=== PATIENT | female | born 1990 | race Caucasian/White ===

== ENCOUNTER 2019-04-07 15:37 | Emergency (ER) | payer MEDICAID ==
[2019-04-07] MEDS ORDERED: Ondansetron 4 MG Tab.DIS PO ONE (18:04)
--- NOTE | 2019-04-07 18:13 | EDM.PDOC ---
ED HPI GENERAL MEDICAL PROBLEM - General Chief Complaint: ENT Problem Stated Complaint: DENTAL COMPLAINT Time Seen by Provider: 04/07/19 17:48 Source of Information: Reports: Patient History Limitations: Reports: No Limitations - History of Present Illness INITIAL COMMENTS - FREE TEXT/NARRATIVE: Ms. Gale is a pleasant 28-year-old woman with no significant past medical history, who states that she had 5 teeth extracted, due to an infection, this past 04/05/2019 at [facility] in [place]. She states that she was prescribed [place], but no antibiotics. She states that she has been taking half a tablet of [place], along with 800 mg of ibuprofen every 6 hours. She now presents due to nausea and vomiting since , 04/06/2019. The patient states that she saw her PCP earlier today, and was prescribed metronidazole for bacterial vaginosis. She states that she did not discuss her nausea and vomiting with her PCP. The patient denies recent fever, but states that she had watery diarrhea this morning, then none since. The patient's PCP is Lizzeth Coates NP. 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 - Past Surgical History Female Surgical History: Reports: Ureteral Stent (right, due to extrinsic constriction), Other (See Below) (Cervical surgery) Social & Family History - Family History Family Medical History: Noncontributory - Tobacco Use Smoking Status *Q: Current Some Day Smoker Years of Tobacco use: 14 Packs/Tins Daily: 0.2 - Caffeine Use Caffeine Use: Reports: Coffee - Alcohol Use Alcohol Use History: No - Recreational Drug Use Recreational Drug Use: No - Living Situation & Occupation Living situation: Reports: , with Family Occupation: Unemployed ED ROS ENT - Review of Systems Review Of Systems: ROS reveals no pertinent complaints other than HPI. ED EXAM, ENT - Physical Exam Exam: See Below Exam Limited By: No Limitations General Appearance: Alert, WD/WN, No Apparent Distress Eye Exam: Bilateral Eye: EOMI, Normal Inspection Ears: Normal External Exam, Normal Canal, Hearing Grossly Normal, Normal TMs Nose: Normal Inspection, Normal Mucousa, No Blood Mouth/Throat: Normal Lips, Normal Oropharynx, Other (Teeth # 6, 11, 18 and 19 recently excised. The gingival pockets appear to be clean, with no sign of gingival infection, such as swelling, drainage, or pointing.) Head: Atraumatic, Normocephalic Neck: Normal Inspection, Supple, Non-Tender, Full Range of Motion. No: Lymphadenopathy (L), Lymphadenopathy (R) Course - Vital Signs Last Recorded V/S: Last Vital Signs Temp 37.1 C 04/07/19 16:07 Pulse 92 04/07/19 16:07 Resp 18 04/07/19 16:07 BP 130/77 04/07/19 16:07 Pulse Ox 100 04/07/19 16:07 - Orders/Labs/Meds Meds: Medications Discontinued Medications Generic Name Dose Route Start Last Admin Trade Name Doug PRN Reason Stop Dose Admin Ondansetron HCl 4 mg 04/07/19 18:04 Zofran Odt PO 04/07/19 18:05 ONETIME ONE - Re-Assessments/Exams Free Text/Narrative Re-Assessment/Exam: 04/07/19 18:07 On examination, I do not see any signs of an active gingival infection, therefore I don't see the need for any additional antibiotics at this time. With respect to the patient's nausea and vomiting, that may be due to the [place] , as well as to the Flagyl that she is taking. The patient will be given a tablet of Zofran ODT here, and I will prescribe the same. She may then start taking her previously prescribed [place] at an appropriate dose. I would like her to continue ibuprofen, but at a somewhat lower dose. Departure - Departure Time of Disposition: 18:09 Disposition: Home, Self-Care 01 Condition: Good Clinical Impression: Nausea & vomiting, Pain of gingiva - Discharge Information *PRESCRIPTION DRUG MONITORING PROGRAM REVIEWED*: Yes *COPY OF PRESCRIPTION DRUG MONITORING REPORT IN PATIENT SANTHOSH: No Prescriptions: Ondansetron [Zofran ODT] 1 tab PO Q8H PRN #10 tab.dis PRN Reason: Nausea/Vomiting Referrals: Lizzeth Coates MD [Ordering Only Provider] - Forms: ED Department Discharge Additional Instructions: You were seen in the emergency room for nausea and vomiting following dental extractions on Wednesday, and after starting Flagyl today. You have been started on the antinausea medicine Zofran. A prescription for Zofran has been sent to the [facility], located in the [place] store. Dissolve one tablet of Zofran on your tongue up to every 8 hours, as needed for nausea and vomiting. Continue to take avpm-utc-tyexdso ibuprofen, 3-4 tablets (600-800 mg) every 8 hours, with food, around the clock. Continue to take your previously prescribed [place], 1 to 2 tablets, up to every 6 hours, as needed for pain not relieved by ibuprofen. Continue to take your previously prescribed Flagyl every 8 hours. Follow-up with your dentist as needed. If any other problems, please do not hesitate to return to the ER.
== END 2019-04-07 18:00 | disposition home or self-care (01) ==
LOC: JD.ED 15:37
DX: R11.2 Nausea with vomiting, unspecified (principal); K06.9 Disorder of gingiva and edentulous alveolar ridge, unspecified; Z98.818 Other dental procedure status
CPT/HCPCS: 99282

== ENCOUNTER 2019-06-07 15:08 | Emergency (ER) | payer OTHER, MEDICAID ==
--- NOTE | 2019-06-07 16:03 | CT ---
Head CT Technique: Multiple axial sections through the brain were obtained. Intravenous contrast was not utilized. Comparison: No prior intracranial imaging is available. Findings: Ventricles along with basal cisterns and sulci over the convexities are within normal limits for the patient's age. No abnormal parenchymal densities are seen. No evidence of intracranial hemorrhage. No midline shift or mass effect is seen. Bone window settings were reviewed which show the visualized paranasal sinuses to appear clear. Very minimal mucosal thickening is seen within the inferior mastoid sinus which is likely incidental. Other visualized mastoid sinuses are clear. No acute calvarial abnormality is seen. Impression: 1. Minimal mucosal thickening within the inferior left mastoid sinus which is most likely incidental. 2. No acute intracranial abnormality is appreciated. Diagnostic code #2 This report was dictated in [place] Standard Time
--- NOTE | 2019-06-07 17:42 | CT ---
CT cervical spine Technique: Multiple axial sections were obtained from above C1 inferiorly to the bottom of T2. Reconstructed sagittal and coronal images were reviewed. Comparison: No prior cervical spine imaging. Findings: Vertebral bodies and posterior arches are intact. No bony central or bony neural foraminal stenosis is seen. Scoliosis is noted. No fracture or subluxation is seen. Impression: 1. Scoliosis. Uncertain if this is real or due to position. 2. No acute fracture or abnormal subluxation is seen. Diagnostic code #2 This report was dictated in [place] Standard Time
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
== END 2019-06-07 18:00 | disposition home or self-care (01) ==
LOC: JD.ED 15:08
DX: S16.1XXA Strain of muscle, fascia and tendon at neck level, initial encounter (principal); G44.209 Tension-type headache, unspecified, not intractable; Z88.8 Allergy status to other drugs, medicaments and biological substances; Z88.5 Allergy status to narcotic agent; Z87.891 Personal history of nicotine dependence; V43.92XA Unspecified car occupant injured in collision with other type car in traffic accident, initial encounter; Y92.410 Unspecified street and highway as the place of occurrence of the external cause
CPT/HCPCS: 70450; 70450-26; 72125; 72125-26; 99282; 99284-25

== ENCOUNTER 2019-07-02 13:18 | Emergency (ER) | payer MEDICAID ==
[2019-07-02] MEDS ORDERED: Ondansetron 4 MG/2 ML SDV IVPUSH ONE (13:41)
[2019-07-02] MEDS ORDERED: HYDROmorphone 1 MG/ML Syringe IVPUSH STA (13:41)
[2019-07-02] MEDS ORDERED: Sodium Chloride 0.9% 1,000 ML IV ONE (13:42)
[2019-07-02] MEDS ORDERED: Sodium Chloride 0.9% 10 ML Syringe FLUSH PRN (13:43)
--- NOTE | 2019-07-02 13:50 | EDM.PDOC ---
ED HPI GENERAL MEDICAL PROBLEM - General Chief Complaint: Abdominal Pain Stated Complaint: ABD PAIN AND NAUSEA Time Seen by Provider: 07/02/19 13:31 Source of Information: Reports: Patient, RN Notes Reviewed History Limitations: Reports: No Limitations - History of Present Illness INITIAL COMMENTS - FREE TEXT/NARRATIVE: Patient is a 29-year-old female who presents to the ED for the evaluation of upper abdominal pain and nausea. Patient notes that for the last week she has been having some mid upper abdominal pain that has radiated to her right upper quadrant. She states that the pain worsens with eating, and she states that it got exquisitely worse today after she ate some fried chicken. She notes that she feels nauseous as well, she has not really been able to eat much due to the nausea and pain. She has noticed that she has had some looser stools as well, and she notes some mild shortness of breath as well due to the pain in her right upper quadrant. She notes that the pain does radiate to her right shoulder as well. She notes that she has had a hysterectomy, but she has had no other abdominal surgeries. She is not on any regular medications, and she does not have any other past medical history. She does not smoke, does not drink, nor does she use drugs. She states that her primary care provider is Lizzeth Coates at [place] [facility]. 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 - Past Surgical History HEENT Surgical History: Reports: Oral Surgery Female Surgical History: Reports: Hysterectomy, Ureteral Stent Social & Family History - Family History Family Medical History: Noncontributory - Tobacco Use Smoking Status *Q: Never Smoker - Caffeine Use Caffeine Use: Reports: Soda - Alcohol Use Alcohol Use History: No - Recreational Drug Use Recreational Drug Use: No - Living Situation & Occupation Living situation: Reports: , with Family Occupation: Unemployed ED ROS GENERAL - Review of Systems Review Of Systems: See Below Constitutional: Reports: Chills, Decreased Appetite. Denies: Fever Respiratory: Reports: Shortness of Breath (d/t RUQ pain, hurts to take deep breath). Denies: Cough Cardiovascular: Denies: Chest Pain GI/Abdominal: Reports: Abdominal Pain (mid upper abd pain, RUQ pain w radiation to R shoulder), Diarrhea (loose stools), Decreased Appetite, Nausea. Denies: Vomiting : Denies: Dysuria, Flank Pain, Frequency, Urgency ED EXAM, GI/ABD - Physical Exam Exam: See Below Exam Limited By: No Limitations General Appearance: Alert, WD/WN, No Apparent Distress Eyes: Bilateral: Normal Appearance, EOMI Throat/Mouth: Normal Inspection, Normal Lips, Normal Teeth, Normal Gums, Normal Oropharynx, Normal Voice, No Airway Compromise Head: Atraumatic, Normocephalic Neck: Normal Inspection Respiratory/Chest: No Respiratory Distress, Lungs Clear, Normal Breath Sounds, No Accessory Muscle Use, Chest Non-Tender Cardiovascular: Normal Peripheral Pulses, Regular Rate, Rhythm, No Edema, No Murmur GI/Abdominal Exam: Soft, Guarding, Tender (epigastrium and RUQ exquisitely), Abnormal Bowel Sounds (hypoactive). No: Rigid, Rebound Extremities: Normal Inspection, Normal Capillary Refill Neurological: Alert, Oriented, Normal Cognition, No Motor/Sensory Deficits Psychiatric: Normal Affect, Normal Mood Skin Exam: Warm, Dry, Intact, Normal Color, No Rash Course - Vital Signs Last Recorded V/S: Last Vital Signs Temp 97.7 F 07/02/19 13:29 Pulse 96 07/02/19 13:29 Resp 16 07/02/19 13:29 BP 116/65 07/02/19 13:29 Pulse Ox 95 07/02/19 13:29 - Orders/Labs/Meds Orders: Active Orders 24 hr Category Date Time Status Peripheral IV Care [RC] . DIRECTED Care 07/02/19 13:43 Ordered HYDROmorphone [Dilaudid] Med 07/02/19 17:00 Once 0.5 mg IVPUSH ONETIME ONE Sodium Chloride 0.9% [Saline Flush] Med 07/02/19 13:43 Ordered 10 ml FLUSH ASDIRECTED PRN Peripheral IV Insertion Adult [OM.PC] Stat Oth 07/02/19 13:43 Ordered Medication Orders Sodium Chloride (Saline Flush) 10 ml FLUSH ASDIRECTED PRN PRN Reason: Keep Vein Open Last Admin: 07/02/19 13:53 Dose: 10 ml Labs: Laboratory Tests 07/02/19 07/02/19 07/02/19 Range/Units 13:43 13:43 14:33 WBC 7.86 (3.98-10.04) K/mm3 RBC 4.54 (3.98-5.22) M/mm3 Hgb 14.3 (11.2-15.7) gm/dl Hct 42.3 (34.1-44.9) % MCV 93.2 (79.4-94.8) fl MCH 31.5 (25.6-32.2) pg MCHC 33.8 (32.2-35.5) g/dl RDW Std Deviation 39.1 (36.4-46.3) fL Plt Count 276 (182-369) K/mm3 MPV 10.1 (9.4-12.3) fl Neutrophils % (Manual) 63 H (40-60) % Band Neutrophils % 0 (0-10) % Lymphocytes % (Manual) 26 (20-40) % Atypical Lymphs % 0 % Monocytes % (Manual) 9 (2-10) % Eosinophils % (Manual) 2 (0.7-5.8) % Basophils % (Manual) 0 L (0.1-1.2) Platelet Estimate Adequate RBC Morph Comment Normal Sodium 140 (136-145) mEq/L Potassium 3.5 (3.5-5.1) mEq/L Chloride 102 (98-107) mEq/L Carbon Dioxide 28 (21-32) mEq/L Anion Gap 13.5 (5-15) BUN 13 (7-18) mg/dL Creatinine 0.9 (0.55-1.02) mg/dL Est Cr Clr Drug Dosing 86.34 mL/min Estimated GFR (MDRD) > 60 (>60) mL/min BUN/Creatinine Ratio 14.4 (14-18) Glucose 97 (74-106) mg/dL Calcium 8.9 (8.5-10.1) mg/dL Total Bilirubin 0.6 (0.2-1.0) mg/dL GGT 16 (5-55) U/L AST 12 L (15-37) U/L ALT 23 (14-59) U/L Alkaline Phosphatase 47 (46-116) U/L Total Protein 7.8 (6.4-8.2) g/dl Albumin 4.5 (3.4-5.0) g/dl Globulin 3.3 gm/dL Albumin/Globulin Ratio 1.4 (1-2) Lipase 81 (73-393) U/L Urine Color Yellow (Yellow) Urine Appearance Clear (Clear) Urine pH 7.0 (5.0-8.0) Ur Specific [place] 1.020 (1.005-1.030) Urine Protein Negative (Negative) Urine Glucose (UA) Negative (Negative) Urine Ketones Negative (Negative) Urine Occult Blood Negative (Negative) Urine Nitrite Negative (Negative) Urine Bilirubin Negative (Negative) Urine Urobilinogen 0.2 (0.2-1.0) Ur Leukocyte Esterase Negative (Negative) Urine RBC Not seen (0-5) /hpf Urine WBC 0-5 (0-5) /hpf Ur Squamous Epith Cells 10-20 H (0-5) /hpf Urine Bacteria Rare (FEW) /hpf Urine Mucus Not seen (FEW) /hpf Meds: Medications Generic Name Dose Route Start Last Admin Trade Name Freonesimo PRN Reason Stop Dose Admin Sodium Chloride 10 ml 07/02/19 13:43 07/02/19 13:53 Saline Flush FLUSH 10 ml ASDIRECTED PRN Administration Keep Vein Open Discontinued Medications Generic Name Dose Route Start Last Admin Trade Name Freonesimo PRN Reason Stop Dose Admin Hydromorphone HCl 0.5 mg 07/02/19 13:41 07/02/19 13:52 Dilaudid IVPUSH 07/02/19 13:42 0.5 mg ONETIME STA Administration Sodium Chloride 1,000 mls @ 999 mls/hr 07/02/19 13:42 07/02/19 13:52 Normal Saline IV 07/02/19 14:42 999 mls/hr ASDIRECTED ONE Administration Ondansetron HCl 4 mg 07/02/19 13:41 07/02/19 13:52 Zofran IVPUSH 07/02/19 13:42 4 mg ONETIME ONE Administration - Re-Assessments/Exams Free Text/Narrative Re-Assessment/Exam: 07/02/19 13:52 Patient presents to the ED for the evaluation of epigastric and right upper quadrant abdominal pain. This is quite suspicious for gallbladder etiology. As she ate fried chicken shortly before coming to the ER, we cannot do ultrasound at this time. Patient's pain however is exquisite enough, she is having feelings of being fevered and chilled. Will have an IV to be placed, CBC , CMP, lipase, GGT, urinalysis, 4 mg Zofran, 0.5 mg Dilaudid, some IV fluids and an abdomen pelvis CT with contrast for further evaluation. 07/02/19 15:31 Labs have resulted, and are unremarkable at this time. CT is still pending. Departure - Departure Time of Disposition: 16:48 Disposition: Home, Self-Care 01 Condition: Fair Clinical Impression: Acute abdominal pain in right upper quadrant - Discharge Information *PRESCRIPTION DRUG MONITORING PROGRAM REVIEWED*: No *COPY OF PRESCRIPTION DRUG MONITORING REPORT IN PATIENT SANTHOSH: No Prescriptions: Ondansetron [Zofran ODT] 4 mg PO Q8H PRN #12 tab.dis PRN Reason: Nausea Instructions: Biliary Colic, Adult Referrals: Lizzeth Coates MD [Primary Care Provider] - Forms: ED Department Discharge Additional Instructions: You were evaluated in the ER today regarding your right upper quadrant abdominal pain. Recommend that you stick to a clear liquid diet over the next few days, advance to bland as tolerated, do not eat a lot of foods that have high fat content, like fast food, fried foods, etc. You were provided with an outpatient order for further evaluation of your gallbladder. As your pain is most likely due to some sort of gallbladder dysfunction. Your CT demonstrated no sort of stones or infection around the gallbladder. Your laboratory evaluation also demonstrated no sign of infection around the gallbladder. You were given a few tablets of Zofran, please take as directed, 1 tab dissolvable under your tongue every 8 hours as needed for further nausea. You may try ibuprofen 600 mg every 6 hours as needed for further pain relief. Do not exceed 3200 mg of ibuprofen in a 24-hour time span. You were given a prescription for oxycodone/acetaminophen 5/325, Please take 1 tab every 4-6 hours as needed for further pain relief. Please take as few of these medications as possible, as they are habit-forming. These medications also can cause some constipation, recommend to take a stool softener like MiraLAX while taking these medications. Do not drive while taking these medications. Please return to the ER at any time if your symptoms change or worsen. Sepsis Event Note - Evaluation Sepsis Screening Result: No Definite Risk - Focused Exam Vital Signs: Vital Signs Temp Pulse Resp BP Pulse Ox 07/02/19 13:29 97.7 F 96 16 116/65 95 Date Exam was Performed: 07/02/19 Time Exam was Performed: 17:00 - My Orders Last 24 Hours: My Active Orders 07/02/19 13:43 Peripheral IV Care [RC] . DIRECTED Sodium Chloride 0.9% [Saline Flush] 10 ml FLUSH ASDIRECTED PRN Peripheral IV Insertion Adult [OM.PC] Stat 07/02/19 17:00 HYDROmorphone [Dilaudid] 0.5 mg IVPUSH ONETIME ONE - Assessment/Plan Last 24 Hours: My Active Orders 07/02/19 13:43 Peripheral IV Care [RC] . DIRECTED Sodium Chloride 0.9% [Saline Flush] 10 ml FLUSH ASDIRECTED PRN Peripheral IV Insertion Adult [OM.PC] Stat 07/02/19 17:00 HYDROmorphone [Dilaudid] 0.5 mg IVPUSH ONETIME ONE
--- NOTE | 2019-07-02 16:28 | CT ---
CT abdomen and pelvis Technique: Multiple axial sections were obtained from above the dome of the diaphragm inferiorly through the pubic symphysis. Intravenous and oral contrast was utilized. Delayed images were also obtained through the abdomen and pelvis. Comparison: No previous abdominal imaging is available. Findings: Small amount a reflux of contrast is noted within the distal esophagus. Visualized lung bases show nothing acute. Liver contains no focal abnormality. Spleen appears within normal limits. Adrenal glands show no nodule. Kidneys show symmetric contrast enhancement without hydronephrosis or mass. Incidental small extrarenal pelvis is noted on the right side. Aorta shows no aneurysm. Pancreas is within normal limits. No retroperitoneal adenopathy is seen. Gallbladder contains no calcified gallstones. No mesenteric abnormalities are seen. Appendix appears normal in size. No lytic mass or adenopathy is seen. No free fluid or inflammatory change is identified. Delayed images show contrast within the bladder. Bone window settings were reviewed. Small limbus type vertebra is noted off the anterior and superior endplate of L5 which I believe is incidental. No acute osseous finding is appreciated. Impression: 1. Small moderate gastroesophageal reflux of contrast. 2. Other findings believed to be incidental. 3. Nothing acute is appreciated. Diagnostic code #2 This report was dictated in [place] Standard Time
[2019-07-02] MEDS ORDERED: HYDROmorphone 0.5 MG/0.5 ML Syringe IVPUSH ONE (17:00)
== END 2019-07-02 17:14 | disposition home or self-care (01) ==
LOC: JD.ED 13:18
DX: R10.11 Right upper quadrant pain (principal); Z88.5 Allergy status to narcotic agent
CPT/HCPCS: 36415; 74177; 80053; 81001; 82977; 83690; 85007; 85027; 96361; 96374; 96375; 96376; 99284; J1170; J2405; J7030; 99283

== ENCOUNTER 2019-11-25 11:47 | Emergency (ER) | payer MEDICAID ==
[2019-11-25] MEDS ORDERED: Ondansetron 4 MG Tab.DIS PO ONE (12:22)
--- NOTE | 2019-11-25 12:45 | EDM.PDOC ---
ED HPI GENERAL MEDICAL PROBLEM - General Chief Complaint: Back Pain or Injury Stated Complaint: RT SIDE BACK PAIN Time Seen by Provider: 11/25/19 12:22 Source of Information: Reports: Patient, RN Notes Reviewed History Limitations: Reports: No Limitations - History of Present Illness INITIAL COMMENTS - FREE TEXT/NARRATIVE: Patient is a 29-year-old female who presents to the ED for the evaluation of her left mid back discomfort/flank pain. Patient notes that there was kind of an ache there yesterday, but did worsen this morning at around 10-10:30AM when she went to work today. She is also appreciating dysuria, and that her urine has smelled more pungent than it normally does. The patient states she has nausea but has not vomited. She states she has chills but has not had a documented fever at home, and she remains afebrile at time of triage with a temperature of 98.3 F. Patient states that she has been increasing her fluid intake to try to get herself to feel little better, but nothing seems to be helping much at all. Patient denies any chance of at today's visit, states she does not have a uterus. Left Middle Back Pain Score (Numeric/FACES): 6 - Related Data Allergies Allergy/AdvReac Type Severity Reaction Status Date / Time hydrocodone [From [facility]] Allergy Vomiting Verified 11/25/19 12:16 Home Meds: Home Meds Acetaminophen/oxyCODONE [Percocet 325-5 MG] 1 each PO Q6H PRN #12 tab 11/25/19 [ Rx] Ondansetron [Zofran ODT] 4 mg PO Q8H PRN #20 tab.dis 11/25/19 [Rx] levoFLOXacin [Levofloxacin] 500 mg PO DAILY #14 tablet 11/25/19 [Rx] Past Medical History [facility] History: Reports: Endometriosis - Past Surgical History HEENT Surgical History: Reports: Oral Surgery Female Surgical History: Reports: Hysterectomy, Ureteral Stent Social & Family History - Family History Family Medical History: Noncontributory - Tobacco Use Smoking Status *Q: Former Smoker Used Tobacco, but Quit: Yes Month/Year Tobacco Last Used: 2018 - Caffeine Use Caffeine Use: Reports: Coffee - Recreational Drug Use Recreational Drug Use: No - Living Situation & Occupation Living situation: Reports: , with Family Occupation: Unemployed ED ROS GENERAL - Review of Systems Review Of Systems: See Below Constitutional: Reports: Chills. Denies: Fever, Decreased Appetite Respiratory: Denies: Shortness of Breath, Cough Cardiovascular: Denies: Chest Pain GI/Abdominal: Reports: Abdominal Pain (suprapubic pain), Nausea. Denies: Vomiting : Reports: Discharge (slight vaginal discharge), Dysuria, Flank Pain (Left flank to left back), Pain (suprapubic). Denies: Frequency, Hematuria, Urgency ED EXAM,LOWER BACK PAIN/INJURY - Physical Exam Exam: See Below Exam Limited By: No Limitations General Appearance: Alert, WD/WN, No Apparent Distress (looks to be in a mild amount of pain) Eye Exam: Bilateral Eye: EOMI, Normal Inspection, PERRL Ears: Normal External Exam Nose: Normal Inspection Throat/Mouth: Normal Inspection Head: Atraumatic, Normocephalic Neck: Normal Inspection Respiratory/Chest: No Respiratory Distress, Lungs Clear, Normal Breath Sounds, No Accessory Muscle Use, Chest Non-Tender Cardiovascular: Normal Peripheral Pulses, Regular Rate, Rhythm, No Murmur GI/Abdominal: Normal Bowel Sounds, Soft, No Distention, No Mass, Tender ( suprapubic tenderness) (Female) Exam: Normal External Exam, Normal Speculum Exam, Vaginal Discharge (pt reports she has noticed increased discharge; appears white in color, slight amount), Other (bimanual exam does demonstrate midline to left lower abdomen tenderness.) Back Exam: Normal Inspection, Full Range of Motion, CVA Tenderness (L). No: CVA Tenderness (R) Extremities: Normal Inspection, Normal Capillary Refill Neurological: Alert, Normal Mood/Affect, Normal Dorsiflexion, Normal Plantar Flexion, Oriented x 3 Psychiatric: Normal Affect, Normal Mood Skin Exam: Warm, Dry, Intact, Normal Color, No Rash Course - Vital Signs Last Recorded V/S: Last Vital Signs Temp 97.0 F 11/25/19 17:25 Pulse 62 11/25/19 17:25 Resp 18 11/25/19 17:25 BP 99/66 11/25/19 17:25 Pulse Ox 97 11/25/19 17:25 - Orders/Labs/Meds Orders: Active Orders 24 hr Category Date Time Status Abdomen Pelvis wo Cont [CT] Stat Exams 11/25/19 13:30 Taken Labs: Laboratory Tests 11/25/19 11/25/19 11/25/19 Range/Units 12:45 13:54 13:54 WBC 5.57 (3.98-10.04) K/mm3 RBC 4.26 (3.98-5.22) M/mm3 Hgb 13.2 (11.2-15.7) gm/dl Hct 39.2 (34.1-44.9) % MCV 92.0 (79.4-94.8) fl MCH 31.0 (25.6-32.2) pg MCHC 33.7 (32.2-35.5) g/dl RDW Std Deviation 39.1 (36.4-46.3) fL Plt Count 215 (182-369) K/mm3 MPV 10.3 (9.4-12.3) fl Neutrophils % (Manual) 64 H (40-60) % Band Neutrophils % 0 (0-10) % Lymphocytes % (Manual) 35 (20-40) % Atypical Lymphs % 0 % Monocytes % (Manual) 1 L (2-10) % Eosinophils % (Manual) 0 L (0.7-5.8) % Basophils % (Manual) 0 L (0.1-1.2) Platelet Estimate Adequate RBC Morph Comment Normal Sodium 140 (136-145) mEq/L Potassium 3.8 (3.5-5.1) mEq/L Chloride 106 (98-107) mEq/L Carbon Dioxide 25 (21-32) mEq/L Anion Gap 12.8 (5-15) BUN 11 (7-18) mg/dL Creatinine 0.9 (0.55-1.02) mg/dL Est Cr Clr Drug Dosing 86.34 mL/min Estimated GFR (MDRD) > 60 (>60) mL/min BUN/Creatinine Ratio 12.2 L (14-18) Glucose 97 (74-106) mg/dL Calcium 8.8 (8.5-10.1) mg/dL Total Bilirubin 0.7 (0.2-1.0) mg/dL AST 15 (15-37) U/L ALT 18 (14-59) U/L Alkaline Phosphatase 36 L (46-116) U/L C-Reactive Protein <0.2 (<1.0) mg/dL Total Protein 6.8 (6.4-8.2) g/dl Albumin 4.0 (3.4-5.0) g/dl Globulin 2.8 gm/dL Albumin/Globulin Ratio 1.4 (1-2) Urine Color Yellow (Yellow) Urine Appearance Clear (Clear) Urine pH 6.5 (5.0-8.0) Ur Specific [place] 1.020 (1.005-1.030) Urine Protein Negative (Negative) Urine Glucose (UA) Negative (Negative) Urine Ketones Negative (Negative) Urine Occult Blood Negative (Negative) Urine Nitrite Negative (Negative) Urine Bilirubin Negative (Negative) Urine Urobilinogen 0.2 (0.2-1.0) Ur Leukocyte Esterase Negative (Negative) Urine RBC 0-5 (0-5) /hpf Urine WBC 0-5 (0-5) /hpf Ur Epithelial Cells 0-5 (0-5) /hpf Urine Bacteria Not seen (FEW) /hpf Urine Mucus Not seen (FEW) /hpf C trachomatis DNA (PCR) N gonorrhoeae DNA (PCR) 11/25/19 Range/Units 15:05 WBC (3.98-10.04) K/mm3 RBC (3.98-5.22) M/mm3 Hgb (11.2-15.7) gm/dl Hct (34.1-44.9) % MCV (79.4-94.8) fl MCH (25.6-32.2) pg MCHC (32.2-35.5) g/dl RDW Std Deviation (36.4-46.3) fL Plt Count (182-369) K/mm3 MPV (9.4-12.3) fl Neutrophils % (Manual) (40-60) % Band Neutrophils % (0-10) % Lymphocytes % (Manual) (20-40) % Atypical Lymphs % % Monocytes % (Manual) (2-10) % Eosinophils % (Manual) (0.7-5.8) % Basophils % (Manual) (0.1-1.2) Platelet Estimate RBC Morph Comment Sodium (136-145) mEq/L Potassium (3.5-5.1) mEq/L Chloride (98-107) mEq/L Carbon Dioxide (21-32) mEq/L Anion Gap (5-15) BUN (7-18) mg/dL Creatinine (0.55-1.02) mg/dL Est Cr Clr Drug Dosing mL/min Estimated GFR (MDRD) (>60) mL/min BUN/Creatinine Ratio (14-18) Glucose (74-106) mg/dL Calcium (8.5-10.1) mg/dL Total Bilirubin (0.2-1.0) mg/dL AST (15-37) U/L ALT (14-59) U/L Alkaline Phosphatase (46-116) U/L C-Reactive Protein (<1.0) mg/dL Total Protein (6.4-8.2) g/dl Albumin (3.4-5.0) g/dl Globulin gm/dL Albumin/Globulin Ratio (1-2) Urine Color (Yellow) Urine Appearance (Clear) Urine pH (5.0-8.0) Ur Specific [place] (1.005-1.030) Urine Protein (Negative) Urine Glucose (UA) (Negative) Urine Ketones (Negative) Urine Occult Blood (Negative) Urine Nitrite (Negative) Urine Bilirubin (Negative) Urine Urobilinogen (0.2-1.0) Ur Leukocyte Esterase (Negative) Urine RBC (0-5) /hpf Urine WBC (0-5) /hpf Ur Epithelial Cells (0-5) /hpf Urine Bacteria (FEW) /hpf Urine Mucus (FEW) /hpf C trachomatis DNA (PCR) Not detected N gonorrhoeae DNA (PCR) Not detected Meds: Medications Discontinued Medications Generic Name Dose Route Start Last Admin Trade Name Freq PRN Reason Stop Dose Admin Hydromorphone HCl 0.5 mg 11/25/19 13:36 11/25/19 13:54 Dilaudid IM 11/25/19 13:37 0.5 mg ONETIME ONE Administration Hydromorphone HCl 0.5 mg 11/25/19 15:27 11/25/19 15:34 Dilaudid IM 11/25/19 15:28 0.5 mg ONETIME ONE Administration Ibuprofen 600 mg 11/25/19 12:55 11/25/19 13:06 Motrin PO 11/25/19 12:56 600 mg ONETIME ONE Administration Ondansetron HCl 4 mg 11/25/19 12:22 11/25/19 12:45 Zofran Odt PO 11/25/19 12:23 4 mg ONETIME ONE Administration Phenazopyridine HCl 95 mg 11/25/19 17:17 11/25/19 17:23 Urinary Pain Relief PO 11/25/19 17:18 95 mg ONETIME ONE Administration - Re-Assessments/Exams Free Text/Narrative Re-Assessment/Exam: 11/25/19 12:46 Patient presents to the ED for the evaluation of her left upper back pain and urinary symptoms. Suspect pyelonephritis in nature. Will get a urinalysis for evaluation and give the patient 4 mg Zofran for nausea management. 11/25/19 13:28 Patient's urinalysis demonstrates no sign of UTI or pyelonephritis at all. Have ordered CBC, CMP and a CRP for further evaluation of symptoms, will likely obtain a wet prep for further analysis, and will question the patient on sexual preferences and the possibility of STDs. 11/25/19 15:[address] demonstrates no obvious sign of pyelonephritis, there was some question of some air in the bladder suspect recent instrumentation, patient denies anything like this. Could be cystitis versus otherwise. Have performed pelvic exam, and gotten swabs for GC and a wet prep done at this time, results are pending. 11/25/19 17:02 Wet prep did return, no sign of bacterial vaginosis or trichomonas. Was informed by lab that there was an error with the GC test while it was being performed, the had to rerun it, this is going to take another hour to result. I did discuss this with the patient, although I feel it will likely be negative , she would like to wait for the results before discharge. This is fine with me. I will likely get her home with some sort of pain medications and nausea medications, for further management have her follow-up with L[facility] sometime this week. 11/25/19 17:26 RN made me aware that the patient came back from the bathroom, and had some intense stabbing type pain/pressure feelings in her bladder; which could suggest maybe a bladder spasm in nature. She states this has happened every time she has urinated at today's visit. She has already gotten 1 mg of Dilaudid total, I will try Pyridium at this time to see if seems to help the patient's symptoms. 11/25/19 18:32 GC is negative, will send the patient home with above plan, and have her follow up with LPN [employer]. Departure - Departure Time of Disposition: 15:30 Disposition: Home, Self-Care 01 Condition: Good Clinical Impression: Acute left flank pain, Dysuria - Discharge Information *PRESCRIPTION DRUG MONITORING PROGRAM REVIEWED*: Yes *COPY OF PRESCRIPTION DRUG MONITORING REPORT IN PATIENT SANTHOSH: No Prescriptions: Acetaminophen/oxyCODONE [Percocet 325-5 MG] 1 each PO Q6H PRN #12 tab PRN Reason: Pain levoFLOXacin [Levofloxacin] 500 mg PO DAILY #14 tablet Ondansetron [Zofran ODT] 4 mg PO Q8H PRN #20 tab.dis PRN Reason: Nausea Instructions: Flank Pain, Adult, [id number], Pain Medicine Instructions, Easy -to-Read Referrals: Lizzeth Coates MD [Primary Care Provider] - Forms: ED Department Discharge Additional Instructions: You were evaluated in the ER today regarding your left-sided back pain, and dysuria. Your urinalysis, laboratory evaluation, and abdominal CT were all negative for any obvious sign of infection. Your physical exam however suggest that there is some source causing you pain and/or discomfort. As you have a history of endometriosis, it could be likely that this is your endometriosis that has possibly spread. You were also tested for sexually transmitted disease, and these tests were negative at today's visit. Highly recommend you follow-up with your LPN [facility], for further evaluation regarding the possible endometriosis pain. You were given a few prescriptions for medications, please take as directed for further pain/nausea relief. Please return to the ER at any time if symptoms change or worsen. Sepsis Event Note - Evaluation Sepsis Screening Result: No Definite Risk - Focused Exam Vital Signs: Vital Signs Temp Pulse Resp BP Pulse Ox 11/25/19 17:25 97.0 F 62 18 99/66 97 11/25/19 16:19 97.9 F 50 L 18 104/67 100 11/25/19 14:50 52 L 18 103/68 100 11/25/19 12:10 98.3 F 65 20 119/71 100 Date Exam was Performed: 11/25/19 Time Exam was Performed: 18:32 - My Orders Last 24 Hours: My Active Orders 11/25/19 13:30 Abdomen Pelvis wo Cont [CT] Stat - Assessment/Plan Last 24 Hours: My Active Orders 11/25/19 13:30 Abdomen Pelvis wo Cont [CT] Stat
[2019-11-25] MEDS ORDERED: Ibuprofen 600 MG Tab PO ONE (12:55)
[2019-11-25] MEDS ORDERED: HYDROmorphone 0.5 MG/0.5 ML Syringe IM ONE ×2 (13:36→15:27)
[2019-11-25] MEDS ORDERED: Phenazopyridine 95 MG Tab PO ONE (17:17)
[2019-11-25 18:21] LABS: C. TRACHOMATIS BY PCR NOT DETECTED; N. GONORRHOEAE BY PCR NOT DETECTED
--- NOTE | 2019-11-27 07:45 | CT ---
CT abdomen and pelvis Technique: Multiple axial sections were obtained from above the kidneys inferiorly through the pubic symphysis. Intravenous and oral contrast not utilized. Comparison: Prior CT exam of 07/02/19. Findings: Small cortical scar is seen within the upper right kidney. Nonobstructing small calculi are seen within the right kidney. Left kidney shows no abnormal calcifications. No ureteral dilatation or ureteral stone is seen. Small amount of air is noted within the bladder and please correlate if patient has had recent instrumentation. Other findings: Visualized lung bases show minimal fibrosis or atelectasis. Visualized liver and spleen shows no discrete abnormality. Gallbladder contains no calcified gallstones. Adrenal glands show no nodule. Pancreas appears within normal limits. Aorta shows no aneurysm. No retroperitoneal adenopathy or mesenteric abnormalities are seen. Appendix is seen which is normal in size. No pelvic mass or adenopathy is seen. Previous hysterectomy is noted. No free fluid or inflammatory change is identified. Minimal fluid is seen within the pelvis believed to be physiologic. Bone window settings were reviewed which show a small limbus type vertebra off the anterior and superior endplate of L5. No acute osseous finding is appreciated. Impression: 1. Small amount of air within the bladder presumably from recent instrumentation. 2. Small nonobstructing calculi within the right kidney. No ureteral dilatation or ureteral calcifications are seen. 3. Nothing acute is appreciated on CT study of the abdomen and pelvis performed without contrast. Diagnostic code #2 This report was dictated in MDT I agree with preliminary report from [facility], finalized on 11/25/19, 2:59 PM Central Daylight Time
== END 2019-11-25 18:42 | disposition home or self-care (01) ==
LOC: JD.ED 11:47
DX: R10.32 Left lower quadrant pain (principal); R30.0 Dysuria
CPT/HCPCS: 36415; 74176; 80053; 81001; 85007; 85027; 86140; 87210; 87491; 87591; 87808; 96372; 99284; A9270; J1170

== ENCOUNTER 2020-01-23 19:38 | Emergency (ER) | payer MEDICAID ==
--- NOTE | 2020-01-23 20:39 | EDM.PDOC ---
ED HPI GENERAL MEDICAL PROBLEM - General Chief Complaint: Abdominal Pain Stated Complaint: POST OP PAIN 01/02/2020 Time Seen by Provider: 01/23/20 20:38 - History of Present Illness INITIAL COMMENTS - FREE TEXT/NARRATIVE: 29-year-old female presents the emergency room with abdominal pain. Sounds as though the patient has had a lot of problems with endometriosis in the past she had a hysterectomy in 2016. Yesterday she had endometriosis surgery she also had ureter stents placed. She is having lots of pain she was discharged on Percocet 1 or 2 every 6 hours she has been using 1 every 6 hours and this is not doing the trick. She has some intermittent nausea she starts to get hungry but then the pain gets worse and her appetite goes away. She is not aware of any fevers or chills she has a hard time feeling if she has pain when she voids however she does have urinary frequency. Her surgery was done as an outpatient at [facility] yesterday. Right Back Pain Score (Numeric/FACES): 8 - Related Data Allergies Allergy/AdvReac Type Severity Reaction Status Date / Time hydrocodone [From [place]] Allergy Severe Vomiting Verified 01/23/20 20:02 Home Meds: Home Meds Acetaminophen/oxyCODONE [Percocet 325-5 MG] 1 each PO Q6H PRN #12 tab 11/25/19 [Rx] Cider Vinegar [Apple Cider Vinegar] 250 mg PO DAILY 01/23/20 [History] Ibuprofen 600 mg PO Q4H PRN 01/23/20 [History] Multivit-Min/Calc/Biotin/D3/FA [Biotin Plus-Calcium & Vit D3] 1 tab PO DAILY 01/23/20 [History] Multivitamin [Multivitamins] 1 cap PO DAILY 01/23/20 [History] Past Medical History Cardiovascular History: Reports: None Respiratory History: Reports: None Gastrointestinal History: Reports: None Genitourinary History: Reports: Renal Calculus 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, Musculoskeletal History: Reports: None Neurological History: Reports: None Psychiatric History: Reports: None Endocrine/Metabolic History: Reports: None Immunologic History: Reports: None Oncologic (Cancer) History: Reports: None Dermatologic History: Reports: None - Infectious Disease History Infectious Disease History: Reports: Chicken Pox - Past Surgical History HEENT Surgical History: Reports: Adenoidectomy, Myringotomy w Tube(s), Oral Surgery, Tonsillectomy Female Surgical History: Reports: Other (See Below) Other Female Surgeries/Procedures: stents placed bilaterally, fallopean tubes removed bilaterally, endometriosis removed and scar tissue removed 01/22/2020. uterus removed 2015 Social & Family History - Family History Family Medical History: Noncontributory - Tobacco Use Smoking Status *Q: Former Smoker Used Tobacco, but Quit: Yes Month/Year Tobacco Last Used: 03/2019 - Caffeine Use Caffeine Use: Reports: Coffee - Recreational Drug Use Recreational Drug Use: No - Living Situation & Occupation Living situation: Reports: , with Family Occupation: Unemployed ED ROS GENERAL - Review of Systems Review Of Systems: See Below Constitutional: Reports: No Symptoms HEENT: Reports: No Symptoms Respiratory: Reports: No Symptoms Cardiovascular: Reports: No Symptoms GI/Abdominal: Reports: Abdominal Pain, Nausea. Denies: Constipation, Diarrhea : Reports: Frequency Musculoskeletal: Reports: No Symptoms Skin: Reports: No Symptoms Neurological: Reports: No Symptoms Psychiatric: Reports: No Symptoms Hematologic/Lymphatic: Reports: No Symptoms ED EXAM, GI/ABD - Physical Exam Exam: See Below Exam Limited By: No Limitations General Appearance: Alert, No Apparent Distress Head: Atraumatic, Normocephalic Neck: Normal Inspection, Supple, Non-Tender, Full Range of Motion Respiratory/Chest: No Respiratory Distress, Lungs Clear, Normal Breath Sounds Cardiovascular: Regular Rate, Rhythm, No Edema, No Murmur GI/Abdominal Exam: Normal Bowel Sounds, Soft, Tender (Diffuse tenderness) Back Exam: Normal Inspection. No: CVA Tenderness (L), CVA Tenderness (R) Extremities: Normal Inspection, Normal Range of Motion Neurological: Alert, Oriented, Normal Cognition Psychiatric: Anxious Lymphatic: No Adenopathy Course - Vital Signs Last Recorded V/S: Last Vital Signs Temp 36.8 C 01/23/20 19:58 Pulse 74 01/23/20 19:58 Resp 20 01/23/20 19:58 BP 96/58 L 01/23/20 19:58 Pulse Ox 99 01/23/20 19:58 - Orders/Labs/Meds Orders: Active Orders 24 hr Category Date Time Status Abdomen 2V AP Flat Upright [CR] Stat Exams 01/23/20 20:49 Taken CULTURE URINE [RM] Stat Lab 01/23/20 20:10 Stop Req Labs: Laboratory Tests 01/23/20 01/23/20 01/23/20 Range/Units 20:10 20:30 20:30 WBC 7.92 (3.98-10.04) K/mm3 RBC 2.93 L (3.98-5.22) M/mm3 Hgb 9.0 L D (11.2-15.7) gm/dl Hct 27.7 L (34.1-44.9) % MCV 94.5 (79.4-94.8) fl MCH 30.7 (25.6-32.2) pg MCHC 32.5 (32.2-35.5) g/dl RDW Std Deviation 41.4 (36.4-46.3) fL Plt Count 236 (182-369) K/mm3 MPV 10.0 (9.4-12.3) fl Neut % (Auto) 58.4 (34.0-71.1) % Lymph % (Auto) 31.9 (19.3-51.7) % [place] % (Auto) 8.0 (4.7-12.5) % Eos % (Auto) 1.1 (0.7-5.8) Baso % (Auto) 0.3 (0.1-1.2) % Neut # (Auto) 4.63 (1.56-6.13) K/mm3 Lymph # (Auto) 2.53 (1.18-3.74) K/mm3 [place] # (Auto) 0.63 H (0.24-0.36) K/mm3 Eos # (Auto) 0.09 (0.04-0.36) K/mm3 Baso # (Auto) 0.02 (0.01-0.08) K/mm3 Sodium 137 (136-145) mEq/L Potassium 4.1 (3.5-5.1) mEq/L Chloride 102 (98-107) mEq/L Carbon Dioxide 27 (21-32) mEq/L Anion Gap 12.1 (5-15) BUN 16 (7-18) mg/dL Creatinine 1.1 H (0.55-1.02) mg/dL Est Cr Clr Drug Dosing 70.64 mL/min Estimated GFR (MDRD) 59 (>60) mL/min BUN/Creatinine Ratio 14.5 (14-18) Glucose 103 (74-106) mg/dL Calcium 8.5 (8.5-10.1) mg/dL Total Bilirubin 0.3 (0.2-1.0) mg/dL AST 10 L (15-37) U/L ALT 19 (14-59) U/L Alkaline Phosphatase 42 L (46-116) U/L Total Protein 6.7 (6.4-8.2) g/dl Albumin 3.7 (3.4-5.0) g/dl Globulin 3.0 gm/dL Albumin/Globulin Ratio 1.2 (1-2) Urine Color [place] H (Yellow) Urine Appearance Cloudy H (Clear) Urine pH 6.0 (5.0-8.0) Ur Specific [place] > or = 1.030 (1.005-1.030) Urine Protein 3+ H (Negative) Urine Glucose (UA) Negative (Negative) Urine Ketones Negative (Negative) Urine Occult Blood 3+ H (Negative) Urine Nitrite Negative (Negative) Urine Bilirubin Negative (Negative) Urine Urobilinogen 0.2 (0.2-1.0) Ur Leukocyte Esterase Trace H (Negative) Urine RBC >100 H (0-5) /hpf Urine WBC 0-5 (0-5) /hpf Ur Squamous Epith Cells 0-5 (0-5) /hpf Urine Bacteria Few (FEW) /hpf Urine Mucus Few (FEW) /hpf Meds: Medications Discontinued Medications Generic Name Dose Route Start Last Admin Trade Name Doug PRN Reason Stop Dose Admin Fentanyl 100 mcg 01/23/20 20:48 01/23/20 21:03 Sublimaze IVPUSH 01/23/20 20:49 50 mcg ONETIME ONE Administration Lactated Ringer's 1,000 mls @ 999 mls/hr 01/23/20 20:48 01/23/20 21:01 Ringers, Lactated IV 01/23/20 21:48 999 mls/hr .BOLUS ONE Administration Ondansetron HCl 4 mg 01/23/20 20:48 01/23/20 21:01 Zofran IVPUSH 01/23/20 20:49 4 mg ONETIME ONE Administration - Re-Assessments/Exams Free Text/Narrative Re-Assessment/Exam: 01/23/20 22:55 KUB and upright is unrevealing she is got tiny accumulation of free air below the right diaphragm but she did have abdominal surgery yesterday. Stents are well visualized. Labs show some microscopic hematuria in her urine and according to the patient she was peeing a lot of blood yesterday after the procedure and not so much today. She is got a mild anemia on her labs labs are otherwise unrevealing. The patient is absolutely insistent on going home at this time I will discharge her she has not been using her Percocet to the full extent as written she is been taking one at a time where she can take 1 or 2 every 6 hours. I recommended strongly that she follow-up with her surgeon tomorrow. Departure - Departure Time of Disposition: 22:57 Disposition: Home, Self-Care 01 Clinical Impression: Postoperative abdominal pain - Discharge Information Referrals: PCP,Unknown [Ordering Only Provider] - Forms: ED Department Discharge Additional Instructions: Return to the emergency room with any questions problems or worsening symptoms. Use your Percocet and you can take 2 every 6 hours as needed[address] not drive or return to work within 12 hours of using this medication however. If you are using this medication on a regular basis consider using a stool softener as this medication can cause constipation. Follow-up with your surgeon tomorrow. Sepsis Event Note (ED) - Evaluation Sepsis Screening Result: No Definite Risk - Focused Exam Vital Signs: Vital Signs Temp Pulse Resp BP Pulse Ox 01/23/20 19:58 36.8 C 74 20 96/58 L 99 - My Orders Last 24 Hours: My Active Orders 01/23/20 20:49 Abdomen 2V AP Flat Upright [CR] Stat - Assessment/Plan Last 24 Hours: My Active Orders 01/23/20 20:49 Abdomen 2V AP Flat Upright [CR] Stat
[2020-01-23] MEDS ORDERED: Ondansetron 4 MG/2 ML SDV IVPUSH ONE (20:48)
[2020-01-23] MEDS ORDERED: fentaNYL 100 MCG/2 ML SDV IVPUSH ONE (20:48)
[2020-01-23] MEDS ORDERED: Lactated Ringers 1,000 ML IV ONE (20:48)
--- NOTE | 2020-01-24 06:07 | CR ---
Abdomen: Supine and upright views of the abdomen were obtained. Comparison: No prior abdominal x-ray, prior CT abdomen and pelvis study of 11/25/19.. Bilateral ureteral stents are noted. Proximal ends lie in the expected region of the renal pelvis on both sides with distal end lying within the expected region of the bladder on both sides. Bowel gas pattern appears normal. No free air is identified. Bony structures are within normal limits. Impression: 1. Bilateral ureteral stents. 2. No additional abnormality is appreciated on 2 view abdominal x-ray. Diagnostic code #2 This report was dictated in MDT
== END 2020-01-23 23:02 | disposition home or self-care (01) ==
LOC: JD.ED 19:38
DX: G89.18 Other acute postprocedural pain (principal); R10.84 Generalized abdominal pain; R11.0 Nausea; Z87.891 Personal history of nicotine dependence; Z88.5 Allergy status to narcotic agent; Z98.890 Other specified postprocedural states
CPT/HCPCS: 36415; 74019; 80053; 81001; 85025; 87086; 96374; 96375; 99284; J2405; J3010; J7120

== ENCOUNTER 2020-01-24 13:05 | Emergency (ER) | payer MEDICAID ==
[2020-01-24] MEDS ORDERED: Ondansetron 4 MG/2 ML SDV IVPUSH ONE (13:42)
[2020-01-24] MEDS ORDERED: Sodium Chloride 0.9% 10 ML Syringe FLUSH PRN (13:42)
[2020-01-24] MEDS ORDERED: HYDROmorphone 1 MG/ML Syringe IVPUSH ONE ×3 (13:43→18:22)
[2020-01-24] MEDS ORDERED: Sodium Chloride 0.9% 1,000 ML IV SCH (13:45)
[2020-01-24] MEDS ORDERED: Iopamidol 612 MG/ML 100 ML Bottle IVPUSH ONE (14:06)
[2020-01-24] MEDS ORDERED: Sodium Chloride 0.9% 10 ML Syringe FLUSH ONE (14:08)
--- NOTE | 2020-01-24 14:49 | CT ---
CT abdomen and pelvis Technique: Multiple axial sections were obtained from above the dome of the diaphragm inferiorly through the pubic symphysis. Intravenous contrast was utilized. No oral contrast has been given. Comparison: Prior noncontrast CT study of 11/25/11. Findings: Small amount of free air is noted beneath the right hemidiaphragm. Visualized lung bases shows mild atelectasis. Liver contains no focal abnormality. Spleen appears within normal limits. Adrenal glands show no nodule. Kidneys shows symmetric contrast enhancement without hydronephrosis or mass. Bilateral ureteral stents are seen. Proximal ends lie within the renal pelvis slightly cephalad to the UPJ. Distal ends terminate within the bladder. Aorta shows no aneurysm. No retroperitoneal adenopathy or mesenteric abnormalities are seen. Gallbladder contains no calcified gallstones. Pancreas is within normal limits. Uterus is not seen well in details. Delayed images shows contrast within the bladder. No further comments about the lower pelvis can be made. Impression: 1. Lower pelvis not optimally seen. Uterus not well visualized. Pelvic ultrasound would be helpful to further evaluate this area if clinically indicated. 2. Bilateral ureteral stents with location as noted above. 3. Small amount of free air beneath the right hemidiaphragm. 4. No other acute abnormality is appreciated on CT study of the abdomen and pelvis. Diagnostic code #3 This report was dictated in MDT
--- NOTE | 2020-01-24 15:26 | EDM.PDOC ---
ED HPI GENERAL MEDICAL PROBLEM - General Chief Complaint: Abdominal Pain Stated Complaint: POST OP PAIN IS GETTING WORSE Time Seen by Provider: 01/24/20 13:32 Source of Information: Reports: Patient History Limitations: Reports: No Limitations - History of Present Illness INITIAL COMMENTS - FREE TEXT/NARRATIVE: The patient presents with lower abdominal pain and nausea. On Wednesday she had stents placed in both ureters and she also had laproscopic surgery for endometriosis. This was done at [place] by Dr Bledsoe EDGE KITTER and the urologist Dr Nunez. She is on percocet for pain. She was seen here yesterday and had labs and an x-ray done. Nothing significant was seen. She was supposed to follow up with her doctor. She is scheduled to see her doctor tomorrow. She has more pain and bloating today. She has nausea but no vomiting. She has no dysuria but no real urge to urinate. She has not been eating or drinking much. She had no gas or BM since the surgery that she can recall. Onset: Gradual Duration: Day(s): Location: Reports: Abdomen, Pelvis Quality: Reports: Sharp Severity: Severe Improves with: Reports: None Worsens with: Reports: None Associated Symptoms: Reports: Nausea/Vomiting. Denies: Chest Pain, Cough, Fever/Chills, Headaches, Shortness of Breath Lower Abdominal Pain Score (Numeric/FACES): 4 - Related Data Allergies Allergy/AdvReac Type Severity Reaction Status Date / Time hydrocodone [From [place]] Allergy Severe Vomiting Verified 01/23/20 20:02 Home Meds: Home Meds Acetaminophen/oxyCODONE [Percocet 325-5 MG] 1 each PO Q6H PRN #12 tab 11/25/19 [Rx] Cider Vinegar [Apple Cider Vinegar] 250 mg PO DAILY 01/23/20 [History] Ibuprofen 600 mg PO Q4H PRN 01/23/20 [History] Multivit-Min/Calc/Biotin/D3/FA [Biotin Plus-Calcium & Vit D3] 1 tab PO DAILY 01/23/20 [History] Multivitamin [Multivitamins] 1 cap PO DAILY 01/23/20 [History] Past Medical History Cardiovascular History: Reports: None Respiratory History: Reports: None Gastrointestinal History: Reports: None Genitourinary History: Reports: Renal Calculus 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, Musculoskeletal History: Reports: None Neurological History: Reports: None Psychiatric History: Reports: None Endocrine/Metabolic History: Reports: None Immunologic History: Reports: None Oncologic (Cancer) History: Reports: None Dermatologic History: Reports: None - Infectious Disease History Infectious Disease History: Reports: Chicken Pox - Past Surgical History HEENT Surgical History: Reports: Adenoidectomy, Myringotomy w Tube(s), Oral Surgery, Tonsillectomy Female Surgical History: Reports: Other (See Below) Other Female Surgeries/Procedures: stents placed bilaterally, fallopean tubes removed bilaterally, endometriosis removed and scar tissue removed 01/22/2020. uterus removed 2015 Social & Family History - Family History Family Medical History: Noncontributory - Tobacco Use Smoking Status *Q: Never Smoker Second Hand Smoke Exposure: No - Caffeine Use Caffeine Use: Reports: Coffee - Living Situation & Occupation Living situation: Reports: , with Family Occupation: Unemployed ED ROS GENERAL - Review of Systems Review Of Systems: See Below Constitutional: Reports: No Symptoms HEENT: Reports: No Symptoms Respiratory: Reports: No Symptoms Cardiovascular: Reports: Dyspnea on Exertion Endocrine: Reports: No Symptoms GI/Abdominal: Reports: Abdominal Pain, Nausea. Denies: Vomiting : Reports: No Symptoms Musculoskeletal: Reports: No Symptoms ED EXAM, GI/ABD - Physical Exam Exam: See Below Exam Limited By: No Limitations General Appearance: Alert, No Apparent Distress Ears: Normal External Exam Nose: Normal Inspection Head: Atraumatic, Normocephalic Neck: Normal Inspection Respiratory/Chest: No Respiratory Distress, Lungs Clear, Normal Breath Sounds Cardiovascular: Regular Rate, Rhythm, No Edema, No Murmur GI/Abdominal Exam: Soft, No Organomegaly, No Mass, Tender (Moderate to severe tenderness to the lower abdomen) Course - Vital Signs Last Recorded V/S: Last Vital Signs Temp 98.2 F 01/24/20 13:25 Pulse 62 01/24/20 14:30 Resp 18 01/24/20 14:30 BP 97/50 L 01/24/20 14:30 Pulse Ox 99 01/24/20 14:30 - Orders/Labs/Meds Orders: Active Orders 24 hr Category Date Time Status Peripheral IV Care [RC] . DIRECTED Care 01/24/20 13:42 Active Sodium Chloride 0.9% [Normal Saline] 1,000 ml Med 01/24/20 13:45 Active IV ASDIRECTED Sodium Chloride 0.9% [Saline Flush] Med 01/24/20 13:42 Active 10 ml FLUSH ASDIRECTED PRN ED Antiemetic Medication Reflex [OM.PC] Stat Oth 01/24/20 13:42 Ordered Peripheral IV Insertion Adult [OM.PC] Stat Oth 01/24/20 13:42 Ordered Medication Orders Sodium Chloride (Normal Saline) 1,000 mls @ 125 mls/hr IV ASDIRECTED JOE Last Admin: 01/24/20 14:28 Dose: 125 mls/hr Documented by: RASHMI Sodium Chloride (Saline Flush) 10 ml FLUSH ASDIRECTED PRN PRN Reason: Keep Vein Open Last Admin: 01/24/20 14:52 Dose: 10 ml Documented by: THEODORE Labs: Laboratory Tests 01/24/20 01/24/20 01/24/20 Range/Units 13:40 14:00 14:00 WBC 4.78 (3.98-10.04) K/mm3 RBC 2.89 L (3.98-5.22) M/mm3 Hgb 8.9 L (11.2-15.7) gm/dl Hct 27.6 L (34.1-44.9) % MCV 95.5 H (79.4-94.8) fl MCH 30.8 (25.6-32.2) pg MCHC 32.2 (32.2-35.5) g/dl RDW Std Deviation 40.9 (36.4-46.3) fL Plt Count 223 (182-369) K/mm3 MPV 10.0 (9.4-12.3) fl Neut % (Auto) 48.6 (34.0-71.1) % Lymph % (Auto) 39.1 (19.3-51.7) % [place] % (Auto) 9.2 (4.7-12.5) % Eos % (Auto) 2.3 (0.7-5.8) Baso % (Auto) 0.4 (0.1-1.2) % Neut # (Auto) 2.32 (1.56-6.13) K/mm3 Lymph # (Auto) 1.87 (1.18-3.74) K/mm3 [place] # (Auto) 0.44 H (0.24-0.36) K/mm3 Eos # (Auto) 0.11 (0.04-0.36) K/mm3 Baso # (Auto) 0.02 (0.01-0.08) K/mm3 Sodium 138 (136-145) mEq/L Potassium 3.9 (3.5-5.1) mEq/L Chloride 103 (98-107) mEq/L Carbon Dioxide 28 (21-32) mEq/L Anion Gap 10.9 (5-15) BUN 11 (7-18) mg/dL Creatinine 0.9 (0.55-1.02) mg/dL Est Cr Clr Drug Dosing 86.34 mL/min Estimated GFR (MDRD) > 60 (>60) mL/min BUN/Creatinine Ratio 12.2 L (14-18) Glucose 92 (74-106) mg/dL Calcium 8.5 (8.5-10.1) mg/dL Total Bilirubin 0.5 (0.2-1.0) mg/dL AST 11 L (15-37) U/L ALT 19 (14-59) U/L Alkaline Phosphatase 41 L (46-116) U/L Total Protein 6.9 (6.4-8.2) g/dl Albumin 3.7 (3.4-5.0) g/dl Globulin 3.2 gm/dL Albumin/Globulin Ratio 1.2 (1-2) Lipase 52 L (73-393) U/L HCG, Qual (NEGATIVE) Urine Color [place] H (Yellow) Urine Appearance Slt cloudy H (Clear) Urine pH 6.0 (5.0-8.0) Ur Specific [place] 1.015 (1.005-1.030) Urine Protein 2+ H (Negative) Urine Glucose (UA) Negative (Negative) Urine Ketones Negative (Negative) Urine Occult Blood 3+ H (Negative) Urine Nitrite Negative (Negative) Urine Bilirubin Negative (Negative) Urine Urobilinogen 0.2 (0.2-1.0) Ur Leukocyte Esterase Trace H (Negative) Urine RBC Too numerous to cnt H (0-5) /hpf Urine WBC 10-20 H (0-5) /hpf Ur Squamous Epith Cells 0-5 (0-5) /hpf Urine Bacteria Few (FEW) /hpf Urine Mucus Not seen (FEW) /hpf 07/29/20 Range/Units 14:00 WBC (3.98-10.04) K/mm3 RBC (3.98-5.22) M/mm3 Hgb (11.2-15.7) gm/dl Hct (34.1-44.9) % MCV (79.4-94.8) fl MCH (25.6-32.2) pg MCHC (32.2-35.5) g/dl RDW Std Deviation (36.4-46.3) fL Plt Count (182-369) K/mm3 MPV (9.4-12.3) fl Neut % (Auto) (34.0-71.1) % Lymph % (Auto) (19.3-51.7) % [place] % (Auto) (4.7-12.5) % Eos % (Auto) (0.7-5.8) Baso % (Auto) (0.1-1.2) % Neut # (Auto) (1.56-6.13) K/mm3 Lymph # (Auto) (1.18-3.74) K/mm3 [place] # (Auto) (0.24-0.36) K/mm3 Eos # (Auto) (0.04-0.36) K/mm3 Baso # (Auto) (0.01-0.08) K/mm3 Sodium (136-145) mEq/L Potassium (3.5-5.1) mEq/L Chloride (98-107) mEq/L Carbon Dioxide (21-32) mEq/L Anion Gap (5-15) BUN (7-18) mg/dL Creatinine (0.55-1.02) mg/dL Est Cr Clr Drug Dosing mL/min Estimated GFR (MDRD) (>60) mL/min BUN/Creatinine Ratio (14-18) Glucose (74-106) mg/dL Calcium (8.5-10.1) mg/dL Total Bilirubin (0.2-1.0) mg/dL AST (15-37) U/L ALT (14-59) U/L Alkaline Phosphatase (46-116) U/L Total Protein (6.4-8.2) g/dl Albumin (3.4-5.0) g/dl Globulin gm/dL Albumin/Globulin Ratio (1-2) Lipase (73-393) U/L HCG, Qual Negative (NEGATIVE) Urine Color (Yellow) Urine Appearance (Clear) Urine pH (5.0-8.0) Ur Specific [place] (1.005-1.030) Urine Protein (Negative) Urine Glucose (UA) (Negative) Urine Ketones (Negative) Urine Occult Blood (Negative) Urine Nitrite (Negative) Urine Bilirubin (Negative) Urine Urobilinogen (0.2-1.0) Ur Leukocyte Esterase (Negative) Urine RBC (0-5) /hpf Urine WBC (0-5) /hpf Ur Squamous Epith Cells (0-5) /hpf Urine Bacteria (FEW) /hpf Urine Mucus (FEW) /hpf Meds: Medications Generic Name Dose Route Start Last Admin Trade Name Freq PRN Reason Stop Dose Admin Sodium Chloride 1,000 mls @ 125 mls/hr 01/24/20 13:45 01/24/20 14:28 Normal Saline IV 125 mls/hr ASDIRECTED JOE Administration Sodium Chloride 10 ml 01/24/20 13:42 01/24/20 14:52 Saline Flush FLUSH 10 ml ASDIRECTED PRN Administration Keep Vein Open Discontinued Medications Generic Name Dose Route Start Last Admin Trade Name Freq PRN Reason Stop Dose Admin Hydromorphone HCl 1 mg 01/24/20 13:43 01/24/20 14:09 Dilaudid IVPUSH 01/24/20 13:44 1 mg ONETIME ONE Administration Hydromorphone HCl 1 mg 01/24/20 15:51 01/24/20 16:06 Dilaudid IVPUSH 01/24/20 15:52 1 mg ONETIME ONE Administration Iopamidol 100 ml 01/24/20 14:06 01/24/20 14:28 Isovue-300 (61%) IVPUSH 01/24/20 14:07 100 ml ONETIME ONE Administration Ondansetron HCl 4 mg 01/24/20 13:42 01/24/20 14:03 Zofran IVPUSH 01/24/20 13:43 4 mg ONETIME ONE Administration Sodium Chloride 10 ml 01/24/20 14:08 01/24/20 14:11 Saline Flush FLUSH 01/24/20 14:09 10 ml ONETIME ONE Administration - Re-Assessments/Exams Free Text/Narrative Re-Assessment/Exam: 01/24/20 15:27 I ordered an IV NS at 125mL/hr, zofran 4mg IV, dilaudid 1mg IV, labs, UA and a CT of her abdomen and pelvis. Her WBC was normal. Her Hgb was low at 8.9. It was 9 yesterday. Her CMP looks good. Her lipase is low at 52. Her UA shows blood. Her CT shows lower pelvis not optimally seen. Uterus not well visualized. Pelvic US would be helpful to further evaluate this area if clinically indicated. Bilateral ureteral stents with location as noted above. Small amount of free air beneath the right hemidiaphragm. No other acute abnormality is appreciated on CT study of the abdomen and pelvis. 01/24/20 17:41 The US shows blood and free fluid. I called [place] and talked with Dr Sanchez who is on for EDGE KITTER. She accepted the patient. I have ordered another IV. Her blood pressure looks good still. Departure - Departure Time of Disposition: 17:45 Disposition: DC/Tfer to Acute Hospital 02 Condition: Fair Clinical Impression: Post-op pain Post-operative hemorrhage Qualifiers: Surgical complication system/body Area: genitourinary Procedure type: genitourinary Qualified Code(s): N99.820 - Postprocedural hemorrhage of a genitourinary system organ or structure following a genitourinary system procedure - Discharge Information Referrals: Felicia Bledsoe MD [Primary Care Provider] - Forms: ED Department Discharge Sepsis Event Note (ED) - Evaluation Sepsis Screening Result: No Definite Risk - Focused Exam Vital Signs: Vital Signs Temp Pulse Resp BP Pulse Ox 01/24/20 14:30 62 18 97/50 L 99 01/24/20 13:25 98.2 F 76 16 106/59 L 98 - My Orders Last 24 Hours: My Active Orders 01/24/20 13:42 Peripheral IV Care [RC] . DIRECTED Sodium Chloride 0.9% [Saline Flush] 10 ml FLUSH ASDIRECTED PRN ED Antiemetic Medication Reflex [OM.PC] Stat Peripheral IV Insertion Adult [OM.PC] Stat 01/24/20 13:45 Sodium Chloride 0.9% [Normal Saline] 1,000 ml IV ASDIRECTED - Assessment/Plan Last 24 Hours: My Active Orders 01/24/20 13:42 Peripheral IV Care [RC] . DIRECTED Sodium Chloride 0.9% [Saline Flush] 10 ml FLUSH ASDIRECTED PRN ED Antiemetic Medication Reflex [OM.PC] Stat Peripheral IV Insertion Adult [OM.PC] Stat 01/24/20 13:45 Sodium Chloride 0.9% [Normal Saline] 1,000 ml IV ASDIRECTED
--- NOTE | 2020-01-24 17:41 | US ---
Pelvic ultrasound: Multiple real-time images of the pelvis were obtained. Study was obtained both transabdominally and transvaginally. Comparison: Prior CT abdomen and pelvis study performed earlier on the same day (2:15 PM). Findings: Follicles are noted within both ovaries. Prior hysterectomy is noted. Mobile fluid is seen within the pelvis this is echogenic and presumably represents blood. Uncertain if the mobility of this fluid is due to respiratory motion or represents acute bleeding. Impression: 1. Mobile fluid felt to represent blood within the pelvis. Uncertain if this represents mobility due to respiratory motion or represents acute bleeding. Recommend serial hemoglobins and follow-up ultrasound in the a.m. to make sure this fluid does not increase. 2. Previous hysterectomy. Follicles within both ovaries. Diagnostic code #3 This report was dictated in MDT
== END 2020-01-24 18:32 ==
LOC: JD.ED 13:05
DX: N99.820 Postprocedural hemorrhage of a genitourinary system organ or structure following a genitourinary system procedure (principal); R11.2 Nausea with vomiting, unspecified; Z88.5 Allergy status to narcotic agent; Z98.890 Other specified postprocedural states
CPT/HCPCS: 36415; 74177; 76830; 80053; 81001; 83690; 84703; 85025; 96361; 96374; 96375; 96376; 99285; J1170; J2405; J7030; Q9967

== ENCOUNTER 2020-01-28 17:43 | Emergency (ER) | payer MEDICAID ==
[2020-01-28] MEDS ORDERED: Ondansetron 4 MG/2 ML SDV IVPUSH ONE (18:25)
[2020-01-28] MEDS ORDERED: Sodium Chloride 0.9% 10 ML Syringe FLUSH PRN (18:25)
--- NOTE | 2020-01-28 18:27 | EDM.PDOC ---
ED HPI GENERAL MEDICAL PROBLEM - General Chief Complaint: General Stated Complaint: SKIN COMPLAINT POST SURGERY Time Seen by Provider: 01/28/20 17:51 Source of Information: Reports: Patient History Limitations: Reports: No Limitations - History of Present Illness INITIAL COMMENTS - FREE TEXT/NARRATIVE: Patient is a 29-year-old female who presents to the emergency department with complaints of abdominal bruising and worsening of pain. She has had a number of surgeries over the last week. Initially she had a tubal ligation with Dr. North in [place]. She then returned our emergency department on Wednesday, January 23 due to increased pain. At that time she was found to have intra- abdominal bleeding. She was sent back to [place] where she underwent surgery again with Dr. Veronica Sanchez. She states she was discharged home yesterday morning. She has been doing fairly well overall, however today she developed purple bruising to her bilateral flank areas. The left being worse than the right. She also has a area of purple bruising developing to her mid lower abdomen. States these were not present prior to a few hours ago. She also complains of increased fatigue and nausea. Patient states that she has not had a significant bowel movement for approximately 1 week. The night before her discharge, she did have a small amount of diarrhea. She has been passing small amounts of gas since her discharge as well. Her appetite is diminished. States she has been "picking "at food but has not had a substantial meal in quite some time. She has been taking in a sufficient amount of fluid per her report. She denies any fever, chills, or vomiting. Left Lower Trunk Pain Score (Numeric/FACES): 6 - Related Data Allergies Allergy/AdvReac Type Severity Reaction Status Date / Time hydrocodone [From [place]] Allergy Severe Vomiting Verified 01/28/20 17:57 Home Meds: Home Meds Acetaminophen/oxyCODONE [Percocet 325-5 MG] 1 each PO Q6H PRN #12 tab 11/25/19 [Rx] Ibuprofen 600 mg PO Q4H PRN 01/23/20 [History] Multivit-Min/Calc/Biotin/D3/FA [Biotin Plus-Calcium & Vit D3] 1 tab PO DAILY 01/23/20 [History] Multivitamin [Multivitamins] 1 cap PO DAILY 01/23/20 [History] Past Medical History Cardiovascular History: Reports: None Respiratory History: Reports: None Gastrointestinal History: Reports: None Genitourinary History: Reports: Renal Calculus [employer] History: Reports: Endometriosis, Musculoskeletal History: Reports: None Neurological History: Reports: None Psychiatric History: Reports: None Endocrine/Metabolic History: Reports: None Immunologic History: Reports: None Oncologic (Cancer) History: Reports: None Dermatologic History: Reports: None - Infectious Disease History Infectious Disease History: Reports: Chicken Pox - Past Surgical History HEENT Surgical History: Reports: Adenoidectomy, Myringotomy w Tube(s), Oral Surgery, Tonsillectomy Female Surgical History: Reports: Other (See Below) Other Female Surgeries/Procedures: stents placed bilaterally, fallopean tubes removed bilaterally, endometriosis removed and scar tissue removed 01/22/2020. uterus removed 2015 Social & Family History - Family History Family Medical History: Noncontributory - Tobacco Use Smoking Status *Q: Never Smoker Second Hand Smoke Exposure: No - Caffeine Use Caffeine Use: Reports: Coffee - Recreational Drug Use Recreational Drug Use: No - Living Situation & Occupation Living situation: Reports: , with Family Occupation: Unemployed ED ROS GENERAL - Review of Systems Review Of Systems: See Below Constitutional: Reports: Fatigue. Denies: Fever, Chills HEENT: Reports: No Symptoms Respiratory: Reports: No Symptoms. Denies: Shortness of Breath, Cough Cardiovascular: Reports: No Symptoms. Denies: Chest Pain, Lightheadedness Endocrine: Reports: No Symptoms GI/Abdominal: Reports: Abdominal Pain (generalizes throughout), Nausea, Other (bruising to bilateral sides of abdomen). Denies: Diarrhea, Vomiting : Reports: No Symptoms Musculoskeletal: Reports: No Symptoms ED EXAM, GENERAL - Physical Exam Exam: See Below Exam Limited By: No Limitations General Appearance: Alert, WD/WN, No Apparent Distress Respiratory/Chest: No Respiratory Distress, Lungs Clear, Normal Breath Sounds, No Accessory Muscle Use, Chest Non-Tender Cardiovascular: Normal Peripheral Pulses, Regular Rate, Rhythm, No Edema, No Gallop, No JVD, No Murmur, No Rub GI/Abdominal: Normal Bowel Sounds, Soft, No Organomegaly, No Distention, No Abnormal Bruit, No Mass, Tender (generalized tenderness throughout. Laproscopy incisions appear normal with no redness or drainage. Large area of dark purple ecchymosis to left lateral abdomen. Small area of dark purple ecchymosis to right lateral abdomen and mid abdomen below umbilicus.) Neurological: Alert, Oriented, CN II-XII Intact, Normal Cognition, Normal Gait, Normal Reflexes, No Motor/Sensory Deficits Psychiatric: Normal Affect, Normal Mood Skin Exam: Warm, Dry, Intact, Normal Color, No Rash Course - Vital Signs Last Recorded V/S: Last Vital Signs Temp 97 F 01/28/20 17:53 Pulse 75 01/28/20 17:53 Resp 16 01/28/20 17:53 BP 126/75 01/28/20 17:53 Pulse Ox 100 01/28/20 17:53 - Orders/Labs/Meds Labs: Laboratory Tests 01/28/20 01/28/20 01/28/20 Range/Units 18:35 18:35 18:35 WBC 5.35 (3.98-10.04) K/mm3 RBC 3.18 L (3.98-5.22) M/mm3 Hgb 10.0 L (11.2-15.7) gm/dl Hct 29.8 L (34.1-44.9) % MCV 93.7 (79.4-94.8) fl MCH 31.4 (25.6-32.2) pg MCHC 33.6 (32.2-35.5) g/dl RDW Std Deviation 39.4 (36.4-46.3) fL Plt Count 297 (182-369) K/mm3 MPV 9.5 (9.4-12.3) fl Neut % (Auto) 57.9 (34.0-71.1) % Lymph % (Auto) 29.2 (19.3-51.7) % [place]ison % (Auto) 8.4 (4.7-12.5) % Eos % (Auto) 3.0 (0.7-5.8) Baso % (Auto) 0.4 (0.1-1.2) % Neut # (Auto) 3.10 (1.56-6.13) K/mm3 Lymph # (Auto) 1.56 (1.18-3.74) K/mm3 Addison # (Auto) 0.45 H (0.24-0.36) K/mm3 Eos # (Auto) 0.16 (0.04-0.36) K/mm3 Baso # (Auto) 0.02 (0.01-0.08) K/mm3 Sodium 141 (136-145) mEq/L Potassium 3.2 L (3.5-5.1) mEq/L Chloride 103 (98-107) mEq/L Carbon Dioxide 30 (21-32) mEq/L Anion Gap 11.2 (5-15) BUN 6 L (7-18) mg/dL Creatinine 1.0 (0.55-1.02) mg/dL Est Cr Clr Drug Dosing 77.71 mL/min Estimated GFR (MDRD) > 60 (>60) mL/min BUN/Creatinine Ratio 6.0 L (14-18) Glucose 90 (74-106) mg/dL Calcium 8.6 (8.5-10.1) mg/dL Total Bilirubin 0.6 (0.2-1.0) mg/dL AST 20 (15-37) U/L ALT 26 (14-59) U/L Alkaline Phosphatase 41 L (46-116) U/L Total Protein 7.0 (6.4-8.2) g/dl Albumin 3.6 (3.4-5.0) g/dl Globulin 3.4 gm/dL Albumin/Globulin Ratio 1.1 (1-2) Blood Type AB POSITIVE Gel Antibody Screen Negative Meds: Medications Discontinued Medications Generic Name Dose Route Start Last Admin Trade Name Freq PRN Reason Stop Dose Admin Sodium Chloride 1,000 mls @ 150 mls/hr 01/28/20 18:30 01/28/20 18:44 Normal Saline IV 150 mls/hr ASDIRECTED JOE Administration Ondansetron HCl 4 mg 01/28/20 18:25 01/28/20 18:39 Zofran IVPUSH 01/28/20 18:26 4 mg ONETIME ONE Administration Sodium Chloride 10 ml 01/28/20 18:25 01/28/20 18:40 Saline Flush FLUSH 10 ml ASDIRECTED PRN Administration Keep Vein Open - Re-Assessments/Exams Free Text/Narrative Re-Assessment/Exam: Patient is a 29-year-old female who presents to the emergency department with complaints of postop bruising to her abdomen as well as a generalized feeling of fatigue. I have ordered a CBC, CMP, type and screen, and a transvaginal ultrasound. 01/28/20 20:44 Review of patient's previous lab work done at [facility] through the [place] health information site showed that patient's discharge hemoglobin was 8.5. Lab results today yielded a hemoglobin of 10.0 which is an increase of 1.5 from her discharge hemoglobin. Potassium was slightly low at 3.2. Blood work was otherwise unremarkable. Transvaginal ultrasound was done. Showed a mild amount of simple appearing free fluid. Previous complicated fluid has resolved. She does have a 4. 4 cm simple cyst within the right ovary as interval change from the previous exam. There is evidence of prior hysterectomy. I called [facility] and spoke to the on-call bowling ball patcher, Dr. Coates. She was familiar with the patient as she is the one who actually did her discharge yesterday morning. Discuss tonight's occurrences. She did not recommend that we CT her at this time as it is unlikely that she has hemorrhaging based on her increased hemoglobin. She recommended that the patient continue to monitor her symptoms. States this could be late onset bruising from the surgical procedure that was done on Wednesday. Discussed this with the patient. We will discharge her home with recommendations to continue to monitor and take it easy. I did recommend that she contact her primary bowling ball patcher, Dr. Estrada tomorrow morning to let her know of today's events. Return to the ER at any signs of worsening symptoms. Discharge instructions as documented. Departure - Departure Time of Disposition: 20:46 Disposition: Home, Self-Care 01 Condition: Good Clinical Impression: Post-op pain - Discharge Information *PRESCRIPTION DRUG MONITORING PROGRAM REVIEWED*: No *COPY OF PRESCRIPTION DRUG MONITORING REPORT IN PATIENT SANTHOSH: No Instructions: Pain Relief Before and After Surgery Referrals: Lizzeth Coates NP [Primary Care Provider] - Felicia Bledsoe MD [Ordering Only Provider] - Forms: ED Department Discharge Additional Instructions: You were seen in the emergency department today for increased bruising to your abdomen as well as a generalized feeling of fatigue throughout the day. Your work-up included blood work, as well as a transvaginal ultrasound. The results your blood work were found to be overall normal. Your hemoglobin was 10.0 which is an increase from 8.5 that it was on discharge from [facility]. Your potassium was slightly low, therefore I would recommend that you increase your oral potassium intake. I did consult with Dr. Coates, the on-call bowling ball patcher at [facility] in [place]. She recommended that you continue to monitor your symptoms and follow your postop instructions as previously given. I would recommend that you contact Dr. Estrada tomorrow morning to update her on today's occurrences and to see if she has any additional recommendations. If you should experience any new or worsening symptoms of concern, please do not hesitate to return to the emergency department. Sepsis Event Note (ED) - Evaluation Sepsis Screening Result: No Definite Risk
[2020-01-28] MEDS ORDERED: Sodium Chloride 0.9% 1,000 ML IV SCH (18:30)
--- NOTE | 2020-01-28 20:25 | US ---
Pelvic ultrasound: Multiple real-time images were obtained transvaginally. Comparison: Previous pelvic ultrasound study of 01/24/20. Findings: Prior hysterectomy is seen. Fluid is noted within the pelvis which appears simple. 4.4 cm cyst is noted within the right ovary. This represents an interval change from previous study. Follicles are seen within the left ovary. Impression: 1. Mild amount of simple appearing free fluid. Previous complicated fluid has resolved. 2. 4.4 cm simple cyst within the right ovary as interval change from previous exam. 3. Prior hysterectomy. Diagnostic code #2 This report was dictated in MDT
== END 2020-01-28 20:57 | disposition home or self-care (01) ==
LOC: JD.ED 17:43
DX: G89.18 Other acute postprocedural pain (principal); Z88.5 Allergy status to narcotic agent
CPT/HCPCS: 36415; 76830; 80053; 85025; 86850; 86900; 86901; 96361; 96374; 99284; J2405; J7030; 99283